=== PATIENT | female | born 1960 | race Caucasian/White ===

== ENCOUNTER 2018-04-29 09:24 | Outpatient (CLI) | payer OTHER | END 2018-04-29 09:25 | disposition home or self-care (01) | LOC: BICMAMMO 09:24 | PROVIDERS: ATTEND Family Medicine | DX: Z12.31 Encounter for screening mammogram for malignant neoplasm of breast (principal) | CPT/HCPCS: 77063; 77067 ==

== ENCOUNTER 2018-05-12 09:24 | Outpatient (CLI) | payer OTHER ==
[2018-05-12 10:36] LABS: #Eosinphils 0.1 thou/uL (0.0-0.7); #Monocytes 0.4 thou/uL (0.11-0.59); #Neutrophils 2.1 thou/uL (1.40-6.50); %Basophils 1.1 % (0.0-1.0); %Eosinophils 2.1 % (0.0-10.0); %Lymphocytes 27.9 % (21.0-51.0); %Monocytes 9.7 % (0.0-10.0); %Neutrophils 59.3 % (42.0-75.0); Bilirubin Negative (Negative); Blood, Urine Negative (Negative); Clarity CLEAR (Clear); Glucose, Urine (Dipstick) Negative (Negative); Hemoglobin 13.7 g/dL (12.0-16.0); Leukocyte Trace (Negative); Mean Corpuscular HGB CONC 35.2 g/dL (32.0-36.0); Mean Corpuscular Hemoglobin 30.9 pg (27.0-31.0); Mean Corpuscular Volume 87.8 fL (78.0-98.0); Mean Platelet Volume 6.9 fL (7.4-10.4); Nitrite Negative (Negative); Platelet Count 205 thou/uL (130-400); Protein, Urine (Dipstick) Negative (Neg-Trace); RBC Distribution Width 11.6 % (11.5-14.5); Red Blood Cell (RBC) Count 4.44 mill/uL (4.20-5.40); Urobilinogen 0.2 mg/dL (0.2-1.0); White Blood Cell (WBC) Count 3.6 thou/uL (4.8-10.8)
[2018-05-12 10:38] LABS: Bacteria/HPF None Seen HPF (None Seen); Hyaline Casts/LPF 0-3 HYALINE CAST LPF (0-3 Hyaline); Pathc Cast-AUWi Flag 0.14 (0-2.49); RBC/HPF 0-3 HPF (0-3); Squamous Epithelial None Seen HPF (0-3); WBC/HPF 0-3 HPF (0-3)
[2018-05-12 10:47] LABS: Anion Gap 13 mmol/L (10-20); BUN (Urea Nitrogen) 11 mg/dL (9.8-20.1); Calc. Creatinine Clearance 0 mL/min (70-130); Calcium 9.5 mg/dL (7.8-10.44); Carbon Dioxide 25 mmol/L (22-29); Chloride 104 mmol/L (98-107); Estimated GFR-MDRD 85; Glucose 87 mg/dL (70-105); Potassium 3.5 mmol/L (3.5-5.1); Sodium 138 mmol/L (136-145)
== END 2018-05-12 09:25 | disposition home or self-care (01) ==
LOC: LABBT 09:24
PROVIDERS: ATTEND Orthopaedic Surgery Hand Surgery
DX: Z01.812 Encounter for preprocedural laboratory examination (principal); M65.4 Radial styloid tenosynovitis [de Quervain]
CPT/HCPCS: 80048; 81001; 85025; 93005; 93010

== ENCOUNTER 2018-05-16 05:50 | Day surgery (SDC) | payer OTHER ==
[2018-05-12 09:40] VITALS: BMI 31.4
[2018-05-16] MEDS ORDERED: CEFAZOLIN/Water 2 GM/20 ML SYRINGE ONE (06:24)
[2018-05-16] MEDS ORDERED: Bacitracin Zinc Ointment 30 gm TUBE ONE (06:30)
[2018-05-16] MEDS ORDERED: Bupivacaine PF 0.5% 30 ML VIAL ONE (06:30)
[2018-05-16] MEDS ORDERED: Betamet Acet/Betamet Na Ph 30 MG/5 ML VIAL ONE (06:30)
[2018-05-16] MEDS ORDERED: Fentanyl 100 MCG/2 ML VIAL ONE (07:03)
[2018-05-16] MEDS ORDERED: Ketorolac Tromethamine 30 MG/ML VIAL ONE ×2 (08:41)
--- NOTE | 2018-05-16 09:53 | OP ---
DATE OF SERVICE: 05/16/2018 POSTOPERATIVE DIAGNOSIS: Left first dorsal compartment tenosynovitis/de Quervain's. FINDINGS: 1. Very tight and thickened transverse retinaculum first dorsal compartment. 2. Four branches of the 2 tendons, 3 for the abductor pollicis longus and 1 extensor pollicis brevi s, which was not in a separate compartment. PROCEDURE PERFORMED: 1. First dorsal compartment release. 2. Radical extensor tenosynovectomy, abductor pollicis longus. 3. Application of short arm splint, thumb spica. SPECIMENS SENT: None. TOURNIQUET TIME: 8 minutes. ESTIMATED BLOOD LOSS: 10 mL. INJECTABLE: She had 3 mL of Celestone and local blockade with 10 mL 0.5% Marcaine to augment the ane sthesia as follows: Apolinar Cassidy CRNA [employer]. General LMA technique. INDICATIONS: The patient with marked pain, very thick area of the first dorsal compartment, failed i njection therapy, bracing and time. DESCRIPTION OF PROCEDURE: After successful anesthesia listed above, the limb was prepped and draped. A zigzag longitudinal incision was made to avoid neurological damage and the limb was exsanguinated , tourniquet inflated to 250 mmHg pressure and I gave the patient 5 mL 0.5% Marcaine along the incisi on. We then did an incision sharply with a knife, Sweeny blade, and then after opening the dermis an d epidermis, we then dissected down to the flexor through extensor retinaculum which was very thick. There was some proximal retinaculum bulbous degeneration indicative of tenosynovitis. We saw all br anches of superficial radial nerve, dissecting and retracting them gently from the center of the fiel d then made a longitudinal incision over the mid portion of the transverse retinacular ligament in th e first dorsal compartment shankar. This left a large volar and dorsal portion to prevent subluxation. Immediately we saw there were 4 tendons, 3 of which appeared to be abductor pollicis longus and one extensor pollicis brevis. Adductor pollicis longus had marked tenosynovitis just proximal to the act ual retinaculum and so we did a formal extensor tenosynovectomy in a radical fashion to this tendon. We then released the tourniquet, obtained hemostasis. The retinaculum was not closed. The patient t hen had the wound closed after hemostasis was obtained and Celestone 5 mL given using interrupted 4-0 nylon in a mattress pattern. The patient then had the remaining 5 mL given subcutaneously on the cl osed incision of the Marcaine and left the operating room without evidence of anesthetic or operative complications. A short arm splint was applied.
[2018-05-16] MEDS ORDERED: Lidocaine 1% PF 5 ML VIAL ONE (10:18)
[2018-05-16] MEDS ORDERED: Ondansetron HCl/PF 4 MG/2 ML Vial ONE (10:18)
[2018-05-16] MEDS ORDERED: PROPOFOL 200 MG/20 ML VIAL ONE (10:18)
== END 2018-05-16 09:50 | disposition home or self-care (01) ==
LOC: SDC 05:50
PROVIDERS: ATTEND Orthopaedic Surgery Hand Surgery
PROC: 0LB60ZZ Excision of Left Lower Arm and Wrist Tendon, Open Approach (ICD-10-PCS; principal; 2018-05-16)
DX: M65.4 Radial styloid tenosynovitis [de Quervain] (principal); Z79.899 Other long term (current) drug therapy; Z88.5 Allergy status to narcotic agent; Z88.2 Allergy status to sulfonamides; Z88.8 Allergy status to other drugs, medicaments and biological substances
CPT/HCPCS: 96372; 96374; J0702; J1885; J2001; J2405; J2704; J3010; S0020

== ENCOUNTER 2019-06-08 10:04 | Outpatient (CLI) | payer OTHER ==
--- NOTE | 2019-06-08 11:10 | MMO ---
Bilateral MAMMO Bilat Screen [facility]. CLINICAL HISTORY: Patient is 58 years old and is seen for screening. The patient has no family history of breast cancer. The patient has no personal history of cancer. The patient has a history of bilateral Implants in 1995 - pt states right breast implant ruptured in august. VIEWS: The views performed were: bilateral mediolateral oblique with tomosynthesis; bilateral craniocaudal with tomosynthesis; left mediolateral oblique implant displaced; and left craniocaudal implant displaced. FILMS COMPARED: The present examination has been compared to prior imaging studies performed at [facility] on 01/26/2016 and 04/29/2018, and at [facility] on 01/09/2010 and 01/11/2011. MAMMOGRAM FINDINGS: There are scattered fibroglandular densities. There is a retro-pectoral saline implant in the left breast. There are benign appearing calcifications seen in both breasts. There are no suspicious masses, suspicious calcifications, or new areas of architectural distortion. IMPRESSION: THERE IS NO MAMMOGRAPHIC EVIDENCE OF MALIGNANCY. A ROUTINE FOLLOW-UP MAMMOGRAM IN 1 YEAR IS RECOMMENDED. THE RESULTS OF THIS EXAM WERE SENT TO THE PATIENT. ACR BI-RADS Category 2 - Benign finding MAMMOGRAPHY NOTE: 1. A negative mammogram report should not delay a biopsy if a dominant of clinically suspicious mass is present. 2. Approximately 10% to 15% of breast cancers are not detected by mammography. 3. Adenosis and dense breasts may obscure an underlying neoplasm. Reported by: MIGUE BRONSON MD Electonically Signed: [id number]
== END 2019-06-08 10:05 | disposition home or self-care (01) ==
LOC: BICMAMMO 10:04
PROVIDERS: ATTEND Physician Assistant
DX: Z12.31 Encounter for screening mammogram for malignant neoplasm of breast (principal); Z98.82 Breast implant status
CPT/HCPCS: 77063; 77067

== ENCOUNTER 2020-06-09 09:11 | Outpatient (CLI) | payer OTHER ==
--- NOTE | 2020-06-09 11:35 | MMO ---
Bilateral MAMMO Bilat Screen [facility]. CLINICAL HISTORY: Patient is 59 years old and is seen for screening. The patient has no family history of breast cancer. The patient has no personal history of cancer. The patient has a history of left Implants in 2019 - PATIENT STATES LEFT IMPLANT RUPTURED A FEW MONTHS and bilateral Implants in 1995 - pt states right breast implant ruptured in august. VIEWS: The views performed were: bilateral mediolateral oblique with tomosynthesis; bilateral craniocaudal with tomosynthesis; left mediolateral oblique; and left craniocaudal. FILMS COMPARED: The present examination has been compared to prior imaging studies performed at [facility] on 01/26/2016, 04/29/2018 and 06/08/2019, and at [facility] on 01/11/2011. This study has been interpreted with the assistance of computer-aided detection. MAMMOGRAM FINDINGS: There are scattered fibroglandular densities. Benign calcifications are noted bilaterally. There are no suspicious masses, suspicious calcifications, or new areas of architectural distortion. IMPRESSION: THERE IS NO MAMMOGRAPHIC EVIDENCE OF MALIGNANCY. A ROUTINE FOLLOW-UP MAMMOGRAM IN 1 YEAR IS RECOMMENDED. THE RESULTS OF THIS EXAM WERE SENT TO THE PATIENT. ACR BI-RADS Category 2 - Benign finding MAMMOGRAPHY NOTE: 1. A negative mammogram report should not delay a biopsy if a dominant of clinically suspicious mass is present. 2. Approximately 10% to 15% of breast cancers are not detected by mammography. 3. Adenosis and dense breasts may obscure an underlying neoplasm. Reported by: HENRY ZAMUDIO MD Electonically Signed: [id number]
== END 2020-06-09 09:12 | disposition home or self-care (01) ==
LOC: BICMAMMO 09:11
PROVIDERS: ATTEND Internal Medicine
DX: Z12.31 Encounter for screening mammogram for malignant neoplasm of breast (principal); Z98.82 Breast implant status
CPT/HCPCS: 77063; 77067

== ENCOUNTER 2021-08-07 15:26 | Outpatient (CLI) | payer BC | END 2021-08-07 15:27 | disposition home or self-care (01) | LOC: CTENTCT 15:26 | PROVIDERS: ATTEND Specialist | DX: J32.8 Other chronic sinusitis (principal) | CPT/HCPCS: 70486 ==

== ENCOUNTER 2022-06-21 08:22 | Outpatient (CLI) | payer BC | END 2022-06-21 08:23 | disposition home or self-care (01) | LOC: BICMAMMO 08:22 | PROVIDERS: ATTEND Internal Medicine | DX: Z12.31 Encounter for screening mammogram for malignant neoplasm of breast (principal); Z98.82 Breast implant status | CPT/HCPCS: 77063; 77067 ==